=== PATIENT | female | born 1995 | race Hispanic/Latino ===

== ENCOUNTER 2025-02-26 17:38 | Day surgery (SDC) | payer OTHER, SELFPAY ==
[2025-02-26] VITALS (10 sets, daily range): BP systolic 96–118; BP diastolic 48–76
[2025-02-26 13:34] LABS: % Basophils 0.3 % (0-2); % Eosinophils 0.7 % (0-6); % Immature Granulocytes 0.2 % (0-0.5); % Lymphocytes 26.7 % (20.5-51.1); % Monocytes 6.4 % (1.7-9.3); % Neutrophils 65.7 % (42.2-75.2); Absolute Eosinophils 0.1 10^3/uL (0-0.7); Absolute Lymphocytes 2.4 10^3/uL (1.2-3.4); Absolute Monocytes 0.6 10^3/uL (0.1-0.6); Absolute Neutrophils 5.9 10^3/uL (1.4-6.5); Hematocrit 37.3 % (37.0-47.0); Hemoglobin 12.4 g/dL (12.0-16.0); Mean Corp Hgb Conc. 33.2 g/dL (33.0-37.0); Mean Corpuscular Hgb 28.7 pg (27.0-31.0); Mean Corpuscular Volume 86.3 fL (81.0-99.0); Mean Platelet Volume 10.6 fL (7.4-10.4); Nucleated Red Blood Cells % 0 %; Platelet Count 250 10^3/uL (130-400); Red Blood Cell Count 4.32 10^6/uL (4.20-5.40); Red Cell Dist. Width 13.4 % (11.5-14.5); White Blood Cell Count 8.9 10^3/uL (4.8-10.8)
[2025-02-26 13:45] LABS: HCG, Serum Qualitative Screen Negative
[2025-02-26 13:48] LABS: ALT (SGPT) 20 U/L (0-35); AST (SGOT) 19 U/L (14-36); Albumin 4.1 g/dl (3.5-5.0); Alkaline Phosphatase 85 U/L (38-126); Blood Urea Nitrogen 17 mg/dl (7-17); Calcium 9.5 mg/dl (8.4-10.2); Carbon Dioxide 28 mmol/L (22-30); Chloride 107 mmol/L (98-107); Glucose 98 mg/dl (70-99); Lipase 80 U/L (23-300); Potassium 4.1 mmol/L (3.5-5.1); Sodium 141 mmol/L (135-145); Total Bilirubin 0.7 mg/dl (0.2-1.3); eGFR > 60.00
--- NOTE | 2025-02-26 14:05 | ED.GENMED ---
History of Present Illness
General
Chief Complaint: Abdominal Pain
Source: patient
Exam Limitations: none
Time Seen by Provider: 02/26/25 13:56
Nursing documentation reviewed up to this point in time: agreed with
History of Present Illness
History of Present Illness:
Patient is a 29-year-old female Gibraltarian-speaking who presents to the ER for evaluation. Language line was used. Patient reports she has had abdominal pain which started yesterday. She reports pain is generalized but she points to pain worse in
the right side. She has nauseous but denies any vomiting diarrhea. She reports it is constant but woke her up throughout the night.
She denies any reflux. Denies any back pain. Denies any urinary frequency urgency or dysuria. She reports her menstrual period has been very irregular and for the past 3 months has been intermittently bleeding. She is currently not bleeding now.
She had a child a little over a year ago and did see her OBGYN last then.
Review of Systems
Review of Systems
Allergies reviewed?: Yes
All Other Systems: ROS reviewed and negative except as documented in HPI and ROS
Constitutional: Reports no symptoms; Denies fever, fatigue or chills
Respiratory: Reports no symptoms
Cardiac: Reports no symptoms
ABD/GI: Reports nausea; Denies vomiting, diarrhea or constipated
: Reports no symptoms; Denies flank pain or urgency
Musculoskeletal: Reports no symptoms
Skin: Reports no symptoms
Neurological: Reports no symptoms
Psychiatric: Reports no symptoms
Phy Exam
General Physical Exam
General Presentation: no apparent distress
General age: appears stated age
General Skin: warm and dry
General Habitus: normal
General Mental: alert
General Hydration: appears well hydrated
Cardiovascular Exam
Cardiovascular Exam: regular rate/rhythm, no murmur and normal peripheral pulses
Pulmonary Exam
Pulmonary Exam: lungs clear and no respiratory distress
Gastrointestinal Exam
Gastrointestinal Exam: other (mild epigastric tenderness and rlq tenderness)
Neurological Exam
Neurological Exam: alert and oriented x3
Musculoskeletal Exam
Musculoskeletal Exam: full ROM
Skin Exam
Skin Exam: normal color and warm/dry
Psychiatric Exam
Psychiatric Exam: normal mood/affect
Course
Orders/Labs/Results
Orders:
Orders
02/26/25 13:19
Test Result ONCE
02/26/25 13:23
Complete Blood Count/With Diff Urgent
Comprehensive Metabolic Panel Urgent
HCG, Serum Qualitative Screen Urgent
Lipase Urgent
02/26/25 14:26
CT Abd/Pel (IV only)-DH only Urgent
Comment:
Reason For Exam: pain
0.9% Sodium Chloride 1000 ml [Nss] 1,000 ml IV BOLUS
02/26/25 14:37
UA Reflex to Culture [Urinalysis Reflex To Culture] Urgent
Date Specimen was Collected: 02/26/25
Time Specimen was Collected: 14:31
Urine Microscopic Reflex Cult Urgent
Urine Culture Urgent
THONY Source: U
Specimen Description:
Date Specimen was Collected: 02/26/25
Time Specimen was Collected: 14:31
02/26/25 16:22
Piperacillin/Tazo 3.375 Gram [Zosyn] 3.375 gram in 50 ml IV NOW
02/26/25 16:38
HYDROmorphone [Dilaudid] 0.25 mg IV PACU-Q5MPRN PRN
HYDROmorphone [Dilaudid] 0.5 mg IV PACU-Q5MPRN PRN
Meperidine [Demerol] 12.5 mg IV PACU-Q5MPRN PRN
Ondansetron Injectable [Zofran] 4 mg IV PACU-ONCEPRN PRN
Prochlorperazine [Compazine] 5 mg IV PACU-ONCEPRN PRN
Notify MD As Directed
Notify physician if: for SDS patients with known or suspected sleep obstructive sleep apnea, monitor in the
PACU.
Notify MD for any apneic/desaturation episodes
O2 Therapy [RESP] Urgent
Titrate/Wean O2 to maintain O2 sat greater than (%): 92
Special Instructions: -Provide supplemental oxygen to achieve O2 sat of 92% or greater.
-After 15 min, may wean O2 and discontinue if patient is able to maintain O2 sat of 92%
or greater during recovery period.
If patient is a discharge home, without oxygen therapy, notify anestheiologist if
unable to maintain O2 SAT of 92% or greater on room air for MD clearance.
02/26/25 16:45
Normosol (Mult Electrolytes) [Normosol-R/Plasmalyte-A] 1,000 ml IV PER PROTOCOL
Abnormal Lab Results
02/26/25 02/26/25
13:23 14:37
MPV 10.6 H fL
(7.4-10.4)
Ur Occult Blood Reflex 4+ A
(Negative)
Leukocyte Esterase Rfl 1+ A
(Negative)
Urine RBC 7-10 A /HPF
(0-2)
Urine Bacteria (Reflex) Few A
(Negative)
Urine Albumin (Reflex) 2+ A
(Neg - Trace)
02/26/25 13:23
02/26/25 13:23
Vital Signs
Initial and Last Documented VS:
Initial Vital Signs
Temp Pulse Resp BP Pulse Ox
98.7 F 79 18 118/74 99
02/26/25 13:13 02/26/25 13:13 02/26/25 13:13 02/26/25 13:13 02/26/25 13:13
Last Documented Vital Signs
Temp Pulse Resp BP Pulse Ox
98.7 F 79 18 118/74 99
02/26/25 13:13 02/26/25 13:13 02/26/25 13:13 02/26/25 13:13 02/26/25 13:13
Assistant Attorney General consulted with Physician
Assistant Attorney General consulted with physician?: Yes
Name of Physician Consulted: Noh
MDM/Problems Addressed
MDM/Problems Addressed:
29 yr old female [place]tarian-speaking presents with vague abdominal pain since yesterday. Patient [place]arian-speaking language line used. CAT scan was done and does show acute appendicitis. Patient is no acute distress afebrile normal white count. CAT
scan results reviewed with patient using language line.
IV antibiotics ordered. Case discussed with general surgery on-call Dr. Dixon, who will call the OR.
*Radiology
Radiology exam reviewed: radiology read reviewed
*Pulse Oximetry
Patient hypoxic: no
*Critical Care Note
Total Time (30-74mins, 75-104mins- exclusive of procedures): Not Applicable
ED Attending Note
-
Portions of this chart may have been created with voice recognition software.� Occasional wrong word or��sound alike� substitutions may have occurred due to the inherent limitations of voice recognition software.
Discharge Plan
Departure
Patient Disposition: OR
Date of Disposition: 02/26/25
Time of Disposition: 16:44
Admit to doctor: Geremias
Presentation/result/management discussed w/ accepting MD/: geremias
Patient with high blood pressure during this ER visit?: No
Condition: Fair
Covid-19: Not Applicable
Discharge Problem:
Acute appendicitis
Referrals:
Jose Antonio Tristan DO [Family Provider] -
Interventions
Interventions:
*Risk Screen - Suicide Last Done: 02/26/25 13:13
*General Assessment Last Done: 02/26/25 13:13
*Neglect/Abuse Screening Last Done: 02/26/25 13:13
*ED- Fall Risk Assessment Last Done: 02/26/25 13:55
*ED COVID-19 Vaccine History Last Done: 02/26/25 13:55
YY-Ktktqg-Fptbiztcyt Assessment Last Done: 02/26/25 13:55
Discharge Date and Time
Print Language: KYRGYZ
[2025-02-26] MEDS: NSS 1000 IV ×2 (14:36→20:40)
[2025-02-26 14:49] LABS: Urine Albumin 2+ (Neg - Trace); Urine Bilirubin Negative (Negative); Urine Character Clear (Clear); Urine Color Yellow; Urine Glucose Negative (Negative); Urine Ketone Negative (Negative); Urine Leukocyte 1+ (Negative); Urine Nitrite Negative (Negative); Urine Occult Blood 4+ (Negative); Urine Specific Gravity 1.025 (<1.030); Urine Urobilinogen 1+ (Neg - 1+)
[2025-02-26 14:55] LABS: Urine Mucus Moderate
[2025-02-26 14:56] LABS: Urine Bacteria Few (Negative)
[2025-02-26] MEDS: ZOSYN 50 IV ×2 (16:30→21:38)
--- NOTE | 2025-02-26 17:00 | HPS.HSE ---
Family Physician
-
Family Physician: Jose Antonio Tristan
Chief Complaint
-
Abdominal pain
History of Present Illness
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 Initially the pain was generalized but then localized to the RLQ. She
denies vomiting or diarrhea. She denies fevers. On exam, she is tender to the RLQ.
Medical History
Past Medical History
Past Medical History: Reports None
Past Surgical History: Reports Other (primary UHR)
Social History
Tobacco: Non-smoker
Alcohol: None
Personal:
Living: With Family
Family History
Family History: Not pertinent
Allergies / Home Medications
Allergies reflects when Allergies were last updated in [employer].
Home Medications with original date entered in [facility]
Allergy/Medication List:
NKDA
No home meds
If medication reconciliation has not been performed, why?: Medication List N/A
Review of Systems
-
History Source: Patient
A 12 point ROS was completed and negative except as noted: Yes
Physical Exam
Vital Signs
Vital Signs
Temp Pulse Resp BP Pulse Ox
98.7 F 79 18 118/74 99
02/26/25 13:13 02/26/25 13:13 02/26/25 13:13 02/26/25 13:13 02/26/25 13:13
Physical Exam
General: Well Developed and Well Nourished
HEENT: Moist mucous membranes
Respiratory: Non Labored Respirations
GI: Soft, Non Distended and Tender (rlq)
Skin: Warm and Dry
Neuro: Awake, Alert and AO x 3
Psych: Calm
Laboratory Results
-
02/26/25 13:23
02/26/25 13:23
Laboratory Results
Total Bilirubin 0.7 mg/dl (0.2-1.3) 02/26/25 13:23
AST 19 U/L (14-36) 02/26/25 13:23
ALT 20 U/L (0-35) 02/26/25 13:23
Alkaline Phosphatase 85 U/L (38-126) 02/26/25 13:23
Lipase 80 U/L (23-300) 02/26/25 13:23
Data Reviewed
-
CT Scan: Image Personally Visualized and interpreted, Report Reviewed by me, Discussed with Physician and Discussed with Patient
Lab Data: Labs Reviewed by me, Discussed with Physician and Discussed with Patient
Old Records: Reviewed
Impression/Plan
-
IMPRESSION:
29 yo female presenting with 24 hours or so of abdominal pain. RLQ tender on exam which correlates to CT findings of acute appendicitis. Afebrile. VSS. No leukocytosis.
PLAN:
NPO for Lap appendectomy today
IV abx initiated in ED
Analgesics/antiemetics
IVF while NPO
Tentative plan for d/c in am if does well post operatively
--- NOTE | 2025-02-26 19:39 | W.IMMPOSTOP ---
Surgical Immed Post Op Note
-
Primary Surgeon: Itz Dixon MD
Assisting Surgeon: ADITYA Stevens
Pre-op Diagnosis: acute appendicitis
Post-op Diagnosis: same
Procedure Performed: laparoscopic appendectomy
Anesthesia Type: general plus local
Specimen / Cultures: appendix
Estimated Blood Loss: 25 cc
Complications: no immediate
Operative Findings: swollen inflamed non-perforated appendix
Will send to med surg and resume diet.
--- NOTE | 2025-02-26 22:08 | PTCARENOTE ---
20:20 pt rec'vd from PACU aaox3, R ac with IVF infusing, lap sites glued intact, oriented to unit is Liberian speaking so is admitting nurse pt understood . Pt also given and reviewed sugammadex med given the the use of backup control method
for up to 7 days post surgery, education in [place] pt verbalized understanding.
[2025-02-27] MEDS: TORADOL 10 MG IV (02:01)
[2025-02-27 03:05] VITALS: BP 93/68
[2025-02-27] MEDS: ZOSYN 50 IV (04:13)
[2025-02-27 07:30] VITALS: BP 111/65
--- NOTE | 2025-02-27 09:42 | CM ---
Reviewed the chart notes. Resides with spouse in multi-level home. No DME/VN/SNF in past. CM continues to be available to patient/family and is monitoring medical plan for needs at discharge.
Plan: Discharge to home with no additional needs being identified at this time
--- NOTE | 2025-02-27 09:48 | W.PN.CRS1 ---
Today's Communication / Plan
-
discharge
Assessment/Plan
-
POD#1 laparoscopic appendectomy
labs normal. Vitals normal.
-Continue regular diet.
-OOB as tolerated
-Okay to shower.
-DC IVFS/IV antibiotics.
-OR pathology pending.
-Okay for discharge today. All discharge instructions discussed with patient including medications, activity levels and follow up. All questions answered.
Subjective Data
Procedure
02/26/2025- laparoscopic appendectomy
Subjective Data
Date of Service: February 27, 2025
Patient states she is feeling well. She has no nausea or vomiting. Her pain is controlled. She is tolerated a diet.
Objective Data
-
Vital Signs
Temp Pulse Resp BP Pulse Ox
97.6 F 71 16 111/65 98
02/27/25 07:30 02/27/25 07:30 02/27/25 07:30 02/27/25 07:30 02/27/25 07:30
Intake & Output
02/26/25 02/27/25 02/28/25
06:59 06:59 06:59
Intake Total 1510 / 1510
Output Total 900 / 900
Balance 610 / 610
Intake:
Oral fluids 480 / 480
IV fluids (Total) 930 / 930
Normosol 50 / 50
IV piggybacks 100 / 100
Output:
Urine, Voided 900 / 900
Lab Results
02/26/25 13:23
02/26/25 13:23
Physical Exam
-
General: No Acute Distress and AOx3
Abdomen: Soft, Non Distended and Non Tender
Skin: Warm and Dry
Incision: Clear, Dry, Intact
[2025-02-27] MEDS: ROXICODONE 5 MG PO ×2 (10:22→16:28)
--- NOTE | 2025-02-27 10:56 | W.DS.TRANS ---
DC Summary - Aviation Operations Specialist
-
Discharge Instructions:
Diet Regular
Activity No strenuous activity
Driving Restrictions No driving for 24 hours
Bathing Restrictions OK to Shower
Wound Care Allow glue to naturally fall off. Do not pick at
incisions.
Instructions:
Stand-Alone Forms:
Changes to Home Medications: Yes
Discharge Medications:
DC Medications w/original date entered in [employer]
naproxen sodium 220 mg tablet (Aleve) 440 mg PO DAILYPRN PRN mild pain 02/26/25
oxycodone 5 mg tablet 5 mg PO Q6H PRN Pain #20 tabs 02/27/25
Home Medication Changes
oxycodone 5 mg tablet 5 mg PO Q6H PRN Pain #20 tabs 02/27/25
Pending Results: Yes
Additional Pending Results:
OR pathology
[2025-02-27] MEDS: NSS IV (11:16)
[2025-02-27 11:19] VITALS: BP 101/48
[2025-02-27 15:20] VITALS: BP 126/91
== END 2025-02-27 17:00 | disposition home or self-care (01) ==
LOC: SDS 17:38
PROVIDERS: Emergency Medicine; Nurse Practitioner; ATTENDING PHYSICIAN Surgery; EMERGENCY PHYSICIAN Emergency Medicine
DX: K35.80 Unspecified acute appendicitis (principal)
CPT/HCPCS: 44970; 88304; 74177; 80053; 81003; 81015; 83690; 84703; 85025; 87086; 96361; 96365; 99285; C1776; Q9967

== ENCOUNTER 2025-09-09 18:09 | Emergency (ER) | payer OTHER, SELFPAY ==
[2025-09-09 18:11] VITALS: BP 124/80
--- NOTE | 2025-09-09 20:32 | ED.GENMED ---
History of Present Illness
General
Chief Complaint: Musculo-Skeletal Complaint
Source: patient
Exam Limitations: none
Time Seen by Provider: 09/09/25 19:43
Nursing documentation reviewed up to this point in time: agreed with
History of Present Illness
History of Present Illness:
Patient is a 30-year-old Slovenian-speaking female presents to the ER for evaluation of right foot pain for the past 2 weeks. Language line used for interpretation. She complains of burning pain in the bottom of her foot off-and-on for the past 2
weeks. It does seem worse in the morning. She denies any injury. She denies any swelling. She denies any redness/fever or chills. She has not taken anything for pain. Symptoms she does feel pain in her right calf when she walks. She is not on
anticoagulation she does not smoke. No prior history of DVT or PE.
Phy Exam
General Physical Exam
General Presentation: no apparent distress
General age: appears stated age
General Skin: warm and dry
General Habitus: normal
General Mental: alert
General Hydration: appears well hydrated
Neurological Exam
Neurological Exam: alert and oriented x3
Musculoskeletal Exam
Musculoskeletal Exam: other (rle with strong pulses no obvious swelling or redness no ecchymosis to foot. no ankle tenderness. mild calf tenderness )
Skin Exam
Skin Exam: normal color and warm/dry
Psychiatric Exam
Psychiatric Exam: normal mood/affect
Course
Orders/Labs/Results
Orders:
Orders
09/09/25 20:31
CR Foot - Right 2 Views Urgent
Comment:
Reason For Exam: pain
Venous Doppler Lwr Ext Rt [US Periph Venous LOWER Ext RT] Urgent
Comment:
Reason For Exam: pain
09/09/25 22:15
Ibuprofen [Motrin] 600 mg .ROUTE .STK-MED ONE
09/09/25 22:17
Ibuprofen [Motrin] 600 mg PO NOW STA
Vital Signs
Initial and Last Documented VS:
Initial Vital Signs
Temp Pulse Resp BP Pulse Ox
97.9 F 72 18 124/80 98
09/09/25 18:11 09/09/25 18:11 09/09/25 18:11 09/09/25 18:11 09/09/25 18:11
Last Documented Vital Signs
Temp Pulse Resp BP Pulse Ox
97.9 F 76 20 110/80 98
09/09/25 18:11 09/09/25 22:10 09/09/25 22:10 09/09/25 22:10 09/09/25 22:10
MDM/Problems Addressed
Differential Diagnosis Includes:
not limited to: plantar fascitis
MDM/Problems Addressed:
Symptoms are consistent with possible plantar fasciitis.
no actual trauma .
ultrasound negative for DVT patient no acute distress no evidence of infection afebrile no redness. Will DC with outpatient follow-up podiatry. All instructions reviewed via language line
*Radiology
Radiology exam reviewed: radiology read reviewed
*Pulse Oximetry
SaO2: 98
Oxygen Mode of Delivery: Room air
Patient hypoxic: no
*Critical Care Note
Total Time (30-74mins, 75-104mins- exclusive of procedures): Not Applicable
ED Attending Note
-
Portions of this chart may have been created with voice recognition software.� Occasional wrong word or��sound alike� substitutions may have occurred due to the inherent limitations of voice recognition software.
Discharge Plan
Departure
Patient Disposition: Home (Routine Discharge)
Date of Disposition: 09/09/25
Time of Disposition: 22:28
Patient with high blood pressure during this ER visit?: No
Condition: Fair
Covid-19: Not Applicable
Discharge Problem:
Foot pain
Prescriptions:
No Action
No Current Medications
0
Referrals:
Gilberto San DPM [Active, Podiatry]
UNKNOWN - PT DOES,NOT KNOW [Family Provider]
Activity Restrictions/Additional Instructions:
xrays and ultrasound are negative.
this foot pain may be plantar fasciitis.
You may take ibuprofen 600 mg every hours with food. Please follow-up with podiatry. Call Thursday for appointment in the next 2 days.
Interventions
Interventions:
*Risk Screen - Suicide Last Done: 09/09/25 20:19
*General Assessment Last Done: 09/09/25 20:19
*Neglect/Abuse Screening Last Done: 09/09/25 20:19
*ED- Fall Risk Assessment Last Done: 09/09/25 20:19
*ED COVID-19 Vaccine History Last Done: 09/09/25 20:19
*ED Influenza Vaccine History Last Done: 09/09/25 20:19
ED-Musculoskeletal Assessment Last Done: 09/09/25 20:19
Discharge Date and Time
Print Language: FAROESE
[2025-09-09 22:10] VITALS: BP 110/80
[2025-09-09] MEDS: MOTRIN 600 MG PO (22:18)
== END 2025-09-09 22:59 | disposition home or self-care (01) ==
LOC: EMR 18:09
PROVIDERS: EMERGENCY PHYSICIAN Emergency Medicine
DX: M25.571 Pain in right ankle and joints of right foot (principal)
CPT/HCPCS: 99284; 73620; 93971